=== PATIENT | female | born 1965 | race African-American/Black ===

== ENCOUNTER 2016-07-07 11:58 | Emergency (ER) | payer MEDICAID ==
[~2016-07-07] VITALS: Ht 167.6 cm; Wt 90.7 kg
[~2016-07-07 11:58] MED LIST: NORPTMEDS CO
[2016-07-07 12:07] VITALS: BP 171/88
== END 2016-07-07 16:27 | disposition home or self-care (01) ==
LOC: ER 12:10
DX: M17.11 Unilateral primary osteoarthritis, right knee (principal)
CPT/HCPCS: 73562

== ENCOUNTER 2016-07-31 12:00 | Emergency (ER) | payer MEDICAID ==
[~2016-07-31] VITALS: Ht 167.6 cm; Wt 99.8 kg
[2016-07-31 12:20] VITALS: BP 136/90
== END 2016-07-31 13:34 | disposition home or self-care (01) ==
LOC: ER 12:01
DX: M17.11 Unilateral primary osteoarthritis, right knee (principal); F41.9 Anxiety disorder, unspecified

== ENCOUNTER 2016-08-12 15:11 | Emergency (ER) | payer MEDICAID ==
[~2016-08-12] VITALS: Ht 167.6 cm; Wt 129.3 kg
[2016-08-12 15:25] VITALS: BP 138/90
== END 2016-08-12 17:45 | disposition home or self-care (01) ==
LOC: ER 15:20
DX: S76.911A Strain of unspecified muscles, fascia and tendons at thigh level, right thigh, initial encounter (principal); M17.11 Unilateral primary osteoarthritis, right knee; I10 Essential (primary) hypertension; X58.XXXA Exposure to other specified factors, initial encounter; Y93.89 Activity, other specified; Y92.89 Other specified places as the place of occurrence of the external cause; Y99.8 Other external cause status
CPT/HCPCS: 93971